=== PATIENT | male | born 1975 | race American Indian/Alaskan Native ===

== ENCOUNTER 2018-11-14 08:11 | Emergency (ER) | payer OTHER ==
[2018-11-14 08:20] VITALS: BP 192/116
--- NOTE | 2018-11-14 09:05 | Emergency Department Report ---
ED Abdominal Pain HPI - General Chief Complaint: Abdominal Pain Stated Complaint: NABLE PAIN Time Seen by Provider: 11/14/18 08:47 Source: patient Mode of arrival: Ambulatory Limitations: No Limitations - History of Present Illness Initial Comments: Patient is a 43-year-old -[place] male who is presenting with one month of abdominal discomfort. Patient states that his navel he has a bulging that comes and goes. Patient believes he may have a hernia. Patient has had no nausea vomiting or diarrhea. He is continued to be able to have a bowel movement with no issue. Patient denies any chest pain shortness of breath fevers chills at this time. Patient also has elevated blood pressure on arrival. Patient's been told he has hypertension but has not been prescribed medications. - Related Data Previous Rx's Medication Instructions Recorded Last Taken Type HYDROcodone/APAP 5-325 [[place] 1 each PO Q6HR PRN #15 tablet 10/07/13 Unknown Rx 5/325 mg] Ibuprofen [Motrin] 800 mg PO Q8H PRN #15 tablet 10/07/13 Unknown Rx Amlodipine Besylate [Norvasc] 5 mg PO DAILY #30 tablet 11/14/18 Unknown Rx Docusate Sodium [Colace] 100 mg PO BID #60 capsule 11/14/18 Unknown Rx Ibuprofen [Motrin 800 MG tab] 800 mg PO Q8HR PRN #14 tablet 11/14/18 Unknown Rx Allergies Allergy/AdvReac Type Severity Reaction Status Date / Time No Known Allergies Allergy Verified 11/14/18 08:12 ED Review of Systems ROS: Stated complaint: NABLE PAIN Other details as noted in HPI Comment: All other systems reviewed and negative ED Past Medical Hx - Past Medical History Hx Hypertension: Yes - Surgical History Past Surgical History?: No - Social History Smoking Status: Current Every Day Smoker Substance Use Type: Alcohol - Medications Home Medications: Home Medications Medication Instructions Recorded Confirmed Last Taken Type HYDROcodone/APAP 5-325 [[place] 1 each PO Q6HR PRN #15 tablet 10/07/13 Unknown Rx 5/325 mg] Ibuprofen [Motrin] 800 mg PO Q8H PRN #15 tablet 10/07/13 Unknown Rx Amlodipine Besylate [Norvasc] 5 mg PO DAILY #30 tablet 11/14/18 Unknown Rx Docusate Sodium [Colace] 100 mg PO BID #60 capsule 11/14/18 Unknown Rx Ibuprofen [Motrin 800 MG tab] 800 mg PO Q8HR PRN #14 tablet 11/14/18 Unknown Rx ED Physical Exam - General Limitations: No Limitations General appearance: alert, in no apparent distress - Head Head exam: Present: atraumatic, normocephalic - Eye Eye exam: Present: normal appearance - ENT ENT exam: Present: mucous membranes moist - Neck Neck exam: Present: normal inspection - Respiratory Respiratory exam: Present: normal lung sounds bilaterally. Absent: respiratory distress, wheezes, rales, rhonchi - Cardiovascular Cardiovascular Exam: Present: regular rate, normal rhythm. Absent: systolic murmur, diastolic murmur, rubs, gallop - GI/Abdominal GI/Abdominal exam: Present: soft, tenderness (patient has a uncomfortable feeling when palpating his navel. Patient does have a reducible hernia in this area.), normal bowel sounds. Absent: distended, guarding, rebound, rigid - Rectal Rectal exam: Present: deferred - Extremities Exam Extremities exam: Present: normal inspection - Back Exam Back exam: Present: normal inspection - Neurological Exam Neurological exam: Present: alert, oriented X3 - Psychiatric Psychiatric exam: Present: normal affect, normal mood - Skin Skin exam: Present: warm, dry, intact, normal color. Absent: rash ED Course Vital Signs 11/14/18 08:17 Temperature 98.6 F Pulse Rate 82 Respiratory 16 Rate Blood Pressure 192/116 O2 Sat by Pulse 99 Oximetry ED Medical Decision Making - Medical Decision Making Patient's hernia is repaired reducible. Patient blood pressure was 192/116 on arrival. Patient started on Norvasc also be started on Colace and given Motrin 800 for pain. Patient referred to primary care as well as general surgery for possible closure of his hernia. Critical care attestation.: If time is entered above; I have spent that time in minutes in the direct care of this critically ill patient, excluding procedure time. ED Disposition Clinical Impression: Hypertensive urgency Umbilical hernia Qualifiers: Obstruction and gangrene presence: without obstruction or gangrene Qualified Code(s): K42.9 - Umbilical hernia without obstruction or gangrene Disposition: - TO HOME OR SELFCARE Is pt being admited?: No Does the pt Need Aspirin: No Condition: Stable Instructions: Hypertension (ED), Umbilical Hernia (ED) Referrals: ENZO OLIVEIRA DO [Staff Physician] - 3-5 Days [place] CICI HESS MD [Referring] - 3-5 Days Time of Disposition: 09:03
== END 2018-11-14 09:16 | disposition home or self-care (01) ==
LOC: ED 08:11
DX: K42.9 Umbilical hernia without obstruction or gangrene (principal); I16.0 Hypertensive urgency
CPT/HCPCS: 99282